=== PATIENT | female | born 1970 | race Caucasian/White ===

== ENCOUNTER 2016-11-11 15:07 | Emergency (ER) | payer BC ==
[~2016-11-11] VITALS: Ht 167.6 cm; Wt 62.7 kg
[2016-11-11 15:08] VITALS: BP 155/98
[2016-11-11] MEDS ORDERED: LIDOCAINE 1%, 20ML SQ ONE (15:30)
[2016-11-11] MEDS ORDERED: LIDOCAINE 1%, 20ML ONE (15:52)
[2016-11-11] MEDS ORDERED: DIPH,PERTUSS(ACELL),TET VAC/PF 0.5 ML IM-VACC ONE ×2 (16:08→16:30)
[2016-11-11] MEDS ORDERED: BACITRACIN ZINC OINT 500U/GM, 0.9 GM ONE (16:27)
== END 2016-11-11 16:57 | disposition home or self-care (01) ==
LOC: ED 16:00
DX: S61.211A Laceration without foreign body of left index finger without damage to nail, initial encounter (principal); K21.9 Gastro-esophageal reflux disease without esophagitis; W26.0XXA Contact with knife, initial encounter; Y93.89 Activity, other specified; Y92.009 Unspecified place in unspecified non-institutional (private) residence as the place of occurrence of the external cause; Y99.9 Unspecified external cause status
CPT/HCPCS: 12001; 90471; 90715; 99283; J3490